=== PATIENT | female | born 2000 | race Caucasian/White ===

== ENCOUNTER 2018-03-17 11:14 | Emergency (ER) | payer SELFPAY ==
--- NOTE | 2018-03-17 11:47 | ED.PDOC ---
History of Present Illness - General Chief Complaint: Problem Stated Complaint: pain with urination Time Seen by Provider: 03/17/18 11:44 Source: patient - History of Present Illness Timing/Duration: week Quality: moderate, burning Onset Location: suprapubic Radiation: none Activites at Onset: none Sexual intercourse history: less than 2 months ago, single partner Improving Factors: nothing Worsening Factors: nothing Associated Symptoms: dysuria, polyuria Allergies/Adverse Reactions: Allergies NO KNOWN ALLERGY Allergy (Verified 03/17/18 11:36) Home Medications: Ambulatory Orders Amoxicillin 875 mg PO BID #14 tab 03/17/18 Review of Systems - Review of Systems Constitutional: Denies: chills, fever EENTM: States: no symptoms reported Gastrointestinal/Abdominal: Denies: abdominal pain, nausea, vomiting Genitourinary: States: dysuria, frequency, other - last menstrual period in January. Denies: discharge Skin: States: no symptoms reported Endocrine: States: no symptoms reported Hematologic/Lymphatic: States: no symptoms reported Past Medical History (General) - Patient Medical History Hx Thyroid Disease: Yes - does not take meds Family Medical History - Family History Mother Living Status: Age at (years of age): 47 Cause of : Lung CA Physical Exam - Physical Exam General Appearance: Alert, No apparent distress Gastrointestinal/Abdominal: normal bowel sounds, non tender, soft, abnormal bowel sounds Back Exam: normal inspection, no vertebral tenderness Extremity: normal range of motion, non-tender Skin Exam: normal color, warm/dry Departure - Departure Clinical Impression: Dysuria during Qualifiers: Trimester: first trimester Qualified Code(s): O26.891 - Other specified related conditions, first trimester; R30.0 - Dysuria Qualifiers: Weeks of gestation: less than 8 weeks Qualified Code(s): Z3A.01 - Less than 8 weeks gestation of Disposition: Discharge to Home or Self Care Departure Forms: ED Discharge - Pt. Copy, Patient Portal Self Enrollment Prescriptions: Amoxicillin 875 mg PO BID #14 tab Home Medications: Ambulatory Orders Amoxicillin 875 mg PO BID #14 tab 03/17/18
[2018-03-17 11:55] VITALS: BP 113/80; TEMP 98.7; O2SAT 97
== END 2018-03-17 13:12 | disposition home or self-care (01) ==
LOC: ER 11:14
DX: O26.891 Other specified pregnancy related conditions, first trimester (principal); R30.0 Dysuria; O99.281 Endocrine, nutritional and metabolic diseases complicating pregnancy, first trimester; E07.9 Disorder of thyroid, unspecified; Z3A.01 Less than 8 weeks gestation of pregnancy

== ENCOUNTER 2018-03-27 23:35 | Emergency (ER) | payer MEDICAID ==
--- NOTE | 2018-03-27 23:50 | ED.PDOC ---
History of Present Illness - General Stated Complaint: VAGINAL BLEEDING Time Seen by Provider: 03/27/18 23:42 Source: patient Exam Limitations: no limitations Additional Information: C/O SPOTTING ONSET TODAY. MILD CRAMPING, RECENTLY DIAGNOSED NO OB F/U YET. [id number], [id number]. - History of Present Illness Severity: mild Improving Factors: nothing Worsening Factors: nothing Associated Symptoms: other - CRAMPING Allergies/Adverse Reactions: Allergies NO KNOWN ALLERGY Allergy (Verified 03/27/18 23:50) Home Medications: Ambulatory Orders Amoxicillin 875 mg PO BID #14 tab 03/17/18 Review of Systems - Review of Systems Constitutional: Denies: chills, fever EENTM: States: no symptoms reported Respiratory: States: no symptoms reported Cardiology: States: no symptoms reported Gastrointestinal/Abdominal: States: abdominal pain. Denies: nausea, vomiting Genitourinary: Denies: dysuria, hematuria Musculoskeletal: States: no symptoms reported Skin: States: no symptoms reported Neurological: States: no symptoms reported Endocrine: States: no symptoms reported Hematologic/Lymphatic: States: no symptoms reported Past Medical History (General) - Patient Medical History Hx Stroke: No Hx Congestive Heart Failure: No Hx Thyroid Disease: Yes - does not take meds Hx Diabetes: No Hx MRSA: No - Vaccination History Hx Influenza Vaccination: No Hx Pneumococcal Vaccination: No - Social History Hx Tobacco Use: Yes - Female History Patient : No Family Medical History - Family History Mother Living Status: Age at (years of age): 47 Cause of : Lung CA Physical Exam - Physical Exam General Appearance: No apparent distress, Obese Eye Exam: bilateral normal Ears, Nose, Throat: hearing grossly normal, normal ENT inspection Neck: non-tender, supple, normal inspection Respiratory: lungs clear, normal breath sounds Cardiovascular/Chest: regular rate, rhythm, no murmur Gastrointestinal/Abdominal: non tender, soft, no organomegaly, other - : NL FEMALE, NO BLEEDING, CX NL, CLOSED, BIMANUAL NO MIDLINE/ADNEXAL MASSES TTP. Back Exam: normal inspection, no CVA tenderness, no vertebral tenderness Extremity: normal range of motion, non-tender Neurologic: alert, normal mood/affect Skin Exam: normal color, warm/dry Lymphatic: no adenopathy Progress - EKG/XRAY/CT Xray Comments: US: IUP + FHT Departure - Departure Clinical Impression: Threatened Time of Disposition: 02:54 Disposition: Discharge to Home or Self Care Condition: Good Instructions: DI for Threatened Home Medications: Ambulatory Orders Amoxicillin 875 mg PO BID #14 tab 03/17/18
[2018-03-27 23:51] VITALS: BP 125/76; TEMP 99.2; O2SAT 99
--- NOTE | 2018-03-28 02:43 | US ---
Ultrasound OB early less than 14 weeks on 03/28/2018 CLINICAL INDICATION: , vaginal spotting COMPARISON: None FINDINGS: Multiple sonographic images are obtained throughout the pelvis by transvaginal approach, both transverse and sagittal images are obtained. Uterus measures approximately 10.1 x 6.4 x 6.4 cm. Left ovary measures approximately 2.2 x 2.3 x 1.8 cm. Right ovary measures approximately 2.4 x 2.0 x 2.8 cm. No adnexal mass or fluid collection is noted. There is a single early intrauterine with gestational sac, yolk sac and pole. Estimated gestational age by crown-rump length measurement is an approximate eight week three day gestation. Gestational sac shape appears unremarkable. Positive cardiac activity is noted with a heart rate of 176 bpm. Gestation is too early for placental evaluation. IMPRESSION: Single living approximate eight week three day intrauterine . Electronically signed by: Christofer Brady 03/28/2018 2:42 AM CDT
== END 2018-03-28 03:04 | disposition home or self-care (01) ==
LOC: ER 23:35
DX: O20.0 Threatened abortion (principal); O99.281 Endocrine, nutritional and metabolic diseases complicating pregnancy, first trimester; E07.9 Disorder of thyroid, unspecified; Z3A.08 8 weeks gestation of pregnancy; Z87.891 Personal history of nicotine dependence

== ENCOUNTER 2018-05-02 14:24 | Emergency (ER) | payer MEDICAID, OTHER ==
[2018-05-02 14:34] VITALS: O2SAT 100
--- NOTE | 2018-05-02 15:12 | RAD ---
EXAM DESCRIPTION: Wrist,Left 3 Views CLINICAL HISTORY: pain COMPARISON: None. TECHNIQUE: AP, lateral, right wrist FINDINGS: Radiolucent fracture line across the metaphyseal region of the distal right radius. Minimal cortical buckling on the dorsal aspect. No significant angulation or displacement. Not involving the radiocarpal joint. Distal ulna is unremarkable. Tarsal bones are unremarkable. No radiodense fragments are abnormal objects. Minimal soft tissue swelling. IMPRESSION: No significant displacement or angulation of distal right radial fracture at the metaphyseal region and not involving the radiocarpal joint spaces. Electronically signed by: Mau Wilkinson MD 05/02/2018 3:11 PM CDT
--- NOTE | 2018-05-02 15:28 | ED.PDOC ---
History of Present Illness - General Chief Complaint: Upper Extremity Injury Time Seen by Provider: 05/02/18 15:18 Source: patient, family Exam Limitations: no limitations - History of Present Illness Initial Comments: PT SLAMMED A GATE SHUT. PAIN ENSUED IN LEFT WRIST. PAIN 07/19. 13 WKS . Occurred: just prior to arrival Pain - Upper Extremity: severe: Wrist, left Method of Injury: direct blow Improving Factors: immobilization Worsening Factors: movement Allergies/Adverse Reactions: Allergies NO KNOWN ALLERGY Allergy (Verified 03/27/18 23:50) Home Medications: Ambulatory Orders Amoxicillin 875 mg PO BID #14 tab 03/17/18 Review of Systems - Review of Systems Constitutional: States: no symptoms reported EENTM: States: no symptoms reported Respiratory: States: no symptoms reported Cardiology: States: no symptoms reported Gastrointestinal/Abdominal: States: no symptoms reported Genitourinary: States: no symptoms reported Musculoskeletal: States: see HPI, joint pain, joint swelling. Denies: back pain , muscle pain, neck pain Skin: States: no symptoms reported Neurological: Denies: numbness, paresthesia, tingling, weakness Endocrine: States: no symptoms reported Hematologic/Lymphatic: States: no symptoms reported All other Systems: Reviewed and Negative Past Medical History (General) - Patient Medical History Hx Seizures: No Hx Stroke: No Hx Dementia: No Hx Asthma: No Hx of COPD: No Hx Cardiac Disorders: No Hx Congestive Heart Failure: No Hx Pacemaker: No Hx Hypertension: No Hx Thyroid Disease: Yes Hx Diabetes: No Hx Gastroesophageal Reflux: No Hx Renal Disease: No Hx Cancer: No Hx of HIV: No Hx Hepatitis C: No Hx MRSA: No - Vaccination History Hx Tetanus, Diphtheria Vaccination: No Hx Influenza Vaccination: No Hx Pneumococcal Vaccination: No Immunizations Up to Date: No - Social History Hx Tobacco Use: Yes Hx Chewing Tobacco Use: No Hx Alcohol Use: No Hx Substance Use: No Hx Substance Use Treatment: No Hx Depression: No Feels Threatened In Home Enviroment: No Feels Threatened In a Relationship: No Hx Physical Abuse: No Hx Emotional Abuse: No Hx Suspected Abuse: No - Female History Patient is a Female of Child Bearing Age (10 -59 yrs old): Yes Hx Last Menstrual Period: 01/27/18 Patient : Yes Family Medical History - Family History Mother Living Status: Age at (years of age): 47 Cause of : Lung CA Physical Exam - Physical Exam General Appearance: Alert, Obvious distress Eyes, Ears, Nose, Throat Exam: PERRL/EOMI, normal ENT inspection Neck: non-tender, full range of motion Cardiovascular/Respiratory: regular rate, rhythm, no M/R/G Abdominal Exam: non-tender, no organomegaly Back Exam: normal inspection Shoulder Exam: normal inspection, non-tender, no evidence of injury, normal ROM Elbow/Forearm Exam: non-tender, no evidence of injury, normal ROM Wrist Exam: bone tenderness, limited ROM, pain, soft tissue tenderness, swelling Hand Exam: normal inspection, non-tender, no evidence of injury, normal ROM Neuro/Tendon: normal sensation, normal motor functions, normal tendon functions , responds to pain, no evidence tendon injury Mental Status: alert, oriented x 3 Skin Exam: normal color, warm/dry, other - MILD EDEMA Progress - Progress Progress: 05/02/18 16:32 L DISTAL RADIAL FRX AT METAPHYSIS. (NOTE, RADIOLOGY READ STATES RIGHT, BUT IT IS INDEED LEFT.) DR. VITAL, ORTHO, CONSULTED. SUGAR TONG SPLINT APPLIED. PT INSTRUCTED TO CALL ORTHO TOMORROW AM TO SCHEDULE APPT. Departure - Departure Clinical Impression: Left wrist pain Distal radial fracture Qualifiers: Encounter type: initial encounter Fracture type: closed Fracture morphology: other intra-articular Laterality: left Qualified Code(s): S52.572A - Other intraarticular fracture of lower end of left radius, initial encounter for closed fracture Qualifiers: Weeks of gestation: 13 weeks Qualified Code(s): Z3A.13 - 13 weeks gestation of Disposition: Discharge to Home or Self Care Condition: Good Departure Forms: ED Discharge - Pt. Copy, Patient Portal Self Enrollment Instructions: DI for Forearm Fracture Diet: resume usual diet Activity: no lifting Referrals: Haroldo Orozco MD [Primary Care Provider] - 1-2 Weeks Dennis Vital MD [Active Staff] - 1-5 Days Home Medications: Ambulatory Orders Amoxicillin 875 mg PO BID #14 tab 03/17/18 Additional Instructions: Tylenol 1000 mg is safe with . Please call Dr. Vital's office, orthopedic surgery, in the morning to schedule an appointment for this week.
[2018-05-02] MEDS ORDERED: ACETAMINOPHEN 500 MG TAB PO ONE (15:46)
[2018-05-02 16:27] VITALS: BP 137/79; TEMP 98
== END 2018-05-02 16:35 | disposition home or self-care (01) ==
LOC: ER 14:24
DX: O9A.211 Injury, poisoning and certain other consequences of external causes complicating pregnancy, first trimester (principal); S52.572A Other intraarticular fracture of lower end of left radius, initial encounter for closed fracture; Z3A.13 13 weeks gestation of pregnancy; W23.0XXA Caught, crushed, jammed, or pinched between moving objects, initial encounter; Y92.9 Unspecified place or not applicable

== ENCOUNTER → 2018-05-18 | Outpatient (CLI) | payer OTHER ==
--- NOTE | 2018-05-19 10:15 | RAD ---
EXAM DESCRIPTION: Wrist,Left 3 Views CLINICAL HISTORY: 17 years Female, PAIN COMPARISON: None available. FINDINGS: The visualized bones are well-mineralized. Persistent visualization of the fracture of the distal radial metaphysis. Overlying orthopedic cast is noted. Mild diffuse soft tissue swelling is noted. IMPRESSION: Persistent visualization of the fracture of the distal radial metaphysis with associated soft tissue swelling. Electronically signed by: Briana Wheeler MD 05/19/2018 10:14 AM CDT
== END ==
LOC: RAD 08:00
PROVIDERS: ATTEND Orthopaedic Surgery
DX: S52.502A Unspecified fracture of the lower end of left radius, initial encounter for closed fracture (principal)

== ENCOUNTER 2018-09-18 11:27 | Emergency (ER) | payer OTHER ==
[2018-09-18 11:38] VITALS: TEMP 98.7
--- NOTE | 2018-09-18 11:54 | ED.PDOC ---
History of Present Illness - General Chief Complaint: Abdominal Pain Stated Complaint: RUQ pain Time Seen by Provider: 09/18/18 11:43 Information Source: patient Exam Limitations: no limitations - History of Present Illness Initial Comments: Rebekah Garcias 18 y/o female came to ER with sharp intermittent RUQ pain 3 days ago.She stated it occurred after coming from her regular visit.No nausea/vomiting no dysuria,no constipation denies post or pre prandial pain..Presently 33 w EGA LMP 02 February 2108;EDC-21 Oct 2017;Denies vaginal bleeding or uterine contractions. Abdominal Pain Onset Location: RUQ Pain Radiation: no radiation Quality: moderate, intermittent, sharpness Timing/Duration: other - see hpi Improving Factors: nothing Worsening Factors: nothing Associated Symptoms: other - see hpi Review of Systems - Review of Systems Gastrointestinal/Abdominal: States: see HPI All other Systems: Reviewed and Negative, No Change from Baseline Past Medical History (General) - Patient Medical History Hx Seizures: No Hx Stroke: No Hx Dementia: No Hx Asthma: No Hx of COPD: No Hx Cardiac Disorders: No Hx Congestive Heart Failure: No Hx Pacemaker: No Hx Hypertension: No Hx Thyroid Disease: Yes Hx Diabetes: No Hx Gastroesophageal Reflux: No Hx Renal Disease: No Hx Cancer: No Hx of HIV: No Hx Hepatitis C: No Hx MRSA: No Surgical History: tonsillectomy - Vaccination History Hx Tetanus, Diphtheria Vaccination: No Hx Influenza Vaccination: No Hx Pneumococcal Vaccination: No - Social History Hx Tobacco Use: Yes Hx Chewing Tobacco Use: No Hx Alcohol Use: No Hx Substance Use: No Hx Substance Use Treatment: No Hx Depression: No Hx Physical Abuse: No Hx Emotional Abuse: No Hx Suspected Abuse: No - Female History Hx Last Menstrual Period: 01/27/18 Patient : Yes Expected Date of Delivery:: 11/05/18 Hx Gestational Age: 33 Family Medical History - Family History Mother Living Status: Age at (years of age): 47 Cause of : Lung CA Physical Exam - Physical Exam General Appearance: Alert, Comfortable, No apparent distress Eyes, Ears, Nose, Throat Exam: normal ENT inspection Neck: non-tender, full range of motion, supple, normal inspection Respiratory: chest non-tender, lungs clear, normal breath sounds Cardiovascular/Chest: normal peripheral pulses, regular rate, rhythm, no murmur Peripheral Pulses: No deficit Gastrointestinal/Abdominal: normal bowel sounds, non tender, soft, other - gravid uterus FH-34 cms;FHT-163 Extremity: no calf tenderness, pedal edema - =1 Neurologic: alert, oriented x 3 Skin Exam: normal color, warm/dry Progress - Progress Progress: 09/18/18 13:33 09/18/18 11:57 IV Care:Saline Lock per Protoc QSHIFT Laboratory Results - last 24 hr 09/18/18 11:32 Urine Color Yellow Urine Appearance Sl cloudy Urine pH 7.5 Ur Specific [place] 1.015 Urine Protein Negative Urine Glucose (UA) Negative Urine Ketones Negative Urine Blood Negative Urine Nitrite Negative Urine Bilirubin Negative Urine Urobilinogen 0.2 Ur Leukocyte Esterase Negative Urine RBC 0 Urine WBC 1-3 Ur Epithelial Cells 10-20 Urine Bacteria Rare - EKG/XRAY/CT Xray Comments: OB-Sono-33 weeks ega single IUP no placental abnormalities Departure - Departure Clinical Impression: with 33 completed weeks gestation Abdominal pain Qualifiers: Abdominal location: right upper quadrant Qualified Code(s): R10.11 - Right upper quadrant pain Time of Disposition: 13:35 Disposition: Discharge to Home or Self Care Condition: Fair Departure Forms: ED Discharge - Pt. Copy, Patient Portal Self Enrollment Diet: low fat, low cholesterol, other - Avoid GREASY/SPICY FOODS Referrals: Haroldo Orozco MD [Primary Care Provider] - 1-2 Weeks Home Medications: Ambulatory Orders Cyclobenzaprine HCl 10 mg PO Q8H PRN 09/18/18 Levothyroxine Sodium 25 mcg PO DAILY 09/18/18 Vit W/ Ferrous Fumara [] 1 tab PO DAILY 09/18/18 Additional Instructions: Follow up with primary -OB Dr. Orozco 19 Sep 2018 return to ER as needed
[2018-09-18] MEDS: LACTATED RINGERS 1,000 ML IVS ONE (12:32)
--- NOTE | 2018-09-18 13:18 | US ---
EXAM DESCRIPTION: OB ,Late (15-40wks): Ultrasound. CLINICAL HISTORY: 18 years Female Gestational size and dates correlation. Pain right upper quadrant. unknown. By LMP 01/27/2018 , EGA today is 33 weeks, 3 days, with ATTILA of 11/03/2018. COMPARISON: First trimester OB ultrasound 03/28/2018. EGA today is 33 weeks, 2 days. ATTILA is 11/04/2018.. TECHNIQUE: Trans-pelvic scanning through the urine-filled bladder; trejo-scale, color Doppler, and M-mode sonography FINDINGS: Single, intrauterine gestation, cephalic position. Amniotic fluid volume normal. SANDEEP : 12.9 cm. Maternal cervix well seen. Placenta anterior fundal with no evidence of previa or abruptio. heart rate by M-mode sonography 160 beats/min. limb activity observed. structural survey: Situs solitus. The following structures were visualized and grossly normal - urinary bladder, stomach, and bilateral kidneys; cord insertion, 3-vessel cord and 4 extremities; spine, 4-chamber heart and right and left ventricular outflow tracts; diaphragm, bilateral choroid plexus, lateral ventricles, cerebellum, and cisterna magna. Nose/lips seen profile and en face. Ultrasound parameter measurements for estimating gestational age: BPD 82.2 mm 33/0 (weeks/days). Head circumference 298.2 mm 33/0. Abdominal circumference 291.6 mm 33/1. Femur length 4.8 mm 33/3. FL/HC ratio is elevated. Remaining ultrasound parameter ratios and cephalic index are within the normal range. Mean estimated gestational age is 33 weeks 1 days, corresponding to ATTILA of 11/05/2018. Estimated weight based on these measurements is 2143+/- 321 g. 4 pound, 12 ounces. 34th percentile by medical history. Bilateral adnexa not well seen; ovaries not seen IMPRESSION: 1. Single, living, intrauterine gestation in cephalic presentation. Amniotic fluid volume normal, and maternal cervix not well seen. Placenta fundal anterior with no evidence of previa. Structural survey limited due to age. 2. Estimated gestational age by today's ultrasound examination is 33 weeks 1 days with ATTILA 11/05/2018. This is 2 days younger than the estimated gestation age by menstrual dates. One day younger than EGA by first trimester ultrasound. 3. Estimated weight is 2143 g. 4 pounds, 12 ounces. 34th Percentile by LMP. Electronically signed by: Mau Wilkinson MD 09/18/2018 1:16 PM [facility]
[2018-09-18 13:45] VITALS: BP 116/81; O2SAT 99
== END 2018-09-18 13:45 | disposition home or self-care (01) ==
LOC: ER 11:27
DX: O99.89 Other specified diseases and conditions complicating pregnancy, childbirth and the puerperium (principal); R10.11 Right upper quadrant pain; O99.283 Endocrine, nutritional and metabolic diseases complicating pregnancy, third trimester; E07.9 Disorder of thyroid, unspecified; Z3A.33 33 weeks gestation of pregnancy; Z87.891 Personal history of nicotine dependence
CPT/HCPCS: 76805; 81001; J7120

== ENCOUNTER 2019-08-02 07:58 | Emergency (ER) | payer OTHER ==
[2019-08-02 08:19] VITALS: BP 148/90; TEMP 97.4; O2SAT 99
[2019-08-02] MEDS ORDERED: IBUPROFEN 200 MG TAB PO ONE (08:19)
--- NOTE | 2019-08-02 08:22 | ED.PDOC ---
History of Present Illness - General Chief Complaint: Upper Extremity Injury Stated Complaint: right hand and wrist pain Time Seen by Provider: 08/02/19 08:19 - History of Present Illness Initial Comments: 19 yo female who presents with cc of right hand pain. Onset 1-2 days ago with gradual worsening. Woke up this morning to go to work and reported new onset moderate swelling to the top of the hand as well. Denies any acute trauma/injuries but states she frequently catches a heavy door at work with the right hand and unsure if this could've injured it. Reports constant "cramping" 4/10 pain to entire top of right hand, some radiation to lateral wrist, worse with palpation and with grabbing/lifting items with the hand, no meds tried for relief. Denies any weakness/numbness, redness, warmth, or deformity. No hx of similar sx's. Allergies/Adverse Reactions: Allergies NO KNOWN ALLERGY Allergy (Verified 03/27/18 23:50) Home Medications: Ambulatory Orders Levothyroxine Sodium 25 mcg PO DAILY 09/18/18 Buspirone HCl 10 mg PO BID 08/02/19 OXcarbazepine [Trileptal] 300 mg PO DAILY 08/02/19 OXcarbazepine [Trileptal] 600 mg PO BEDTIME 08/02/19 Review of Systems - Review of Systems Review of Systems: 08/02/19 08:22 as per HPI, all other systems negative All other Systems: Reviewed and Negative Past Medical History (General) - Patient Medical History Hx Seizures: No Hx Stroke: No Hx Dementia: No Hx Asthma: No Hx of COPD: No Hx Cardiac Disorders: No Hx Congestive Heart Failure: No Hx Pacemaker: No Hx Hypertension: No Hx Thyroid Disease: Yes Hx Diabetes: No Hx Gastroesophageal Reflux: No Hx Renal Disease: No Hx Cancer: No Hx of HIV: No Hx Hepatitis C: No Hx MRSA: No Surgical History: tonsillectomy - Vaccination History Hx Tetanus, Diphtheria Vaccination: No Hx Influenza Vaccination: Yes Hx Pneumococcal Vaccination: No - Social History Hx Tobacco Use: Yes Hx Chewing Tobacco Use: No Hx Alcohol Use: No Hx Substance Use: No Hx Substance Use Treatment: No Hx Depression: No Hx Physical Abuse: No Hx Emotional Abuse: No Hx Suspected Abuse: No - Female History Patient is a Female of Child Bearing Age (10 -59 yrs old): Yes Hx Last Menstrual Period: 01/27/18 Patient : No Expected Date of Delivery:: 11/05/18 Hx Gestational Age: 33 Family Medical History - Family History Mother Living Status: Age at (years of age): 47 Cause of : Lung CA Physical Exam - Physical Exam General Appearance: Alert, Comfortable, No apparent distress Eyes, Ears, Nose, Throat Exam: PERRL/EOMI, normal ENT inspection Neck: non-tender, full range of motion, supple, normal inspection Cardiovascular/Respiratory: regular rate, rhythm, no M/R/G, normal breath sounds, no respiratory distress Abdominal Exam: non-tender, no organomegaly Back Exam: normal inspection Shoulder Exam: normal inspection, no evidence of injury Elbow/Forearm Exam: normal inspection, non-tender, no evidence of injury, normal ROM Wrist Exam: normal inspection, non-tender, no evidence of injury, normal ROM Hand Exam: normal ROM, soft tissue tenderness - moderate to entire dorsal R hand, swelling - moderate to dorsal right hand Neuro/Tendon: normal sensation, normal motor functions Mental Status: alert, oriented x 3 Skin Exam: normal color, warm/dry Progress - Progress Progress: 08/02/19 08:24 Right hand pain -suspect strain/sprain most likely vs fracture vs contusion vs arthritis vs other -obtain XR R hand -cold pack and ibuprofen 800 mg for pain 08/02/19 08:41 -XR images show no acute fractures. Suspect strain/sprain of hand. Will advise RICE and gradual return to activity. F/u with PCP 1-2 weeks or sooner PRN. Alek Hinson MD Billing #[id number] - EKG/XRAY/CT XRAY: hand - Right Xray Comments: no acute fractures Departure - Departure Clinical Impression: Sprain of right hand Qualifiers: Encounter type: initial encounter Qualified Code(s): S63.91XA - Sprain of unspecified part of right wrist and hand, initial encounter Time of Disposition: 08:44 Disposition: Discharge to Home or Self Care Condition: Good Departure Forms: ED Discharge - Pt. Copy, Patient Portal Self Enrollment Instructions: DI for Hand Pain Activity: increase activity as tolerated Referrals: Haroldo Orozco MD [Primary Care Provider] - 1-2 Weeks Home Medications: Ambulatory Orders Levothyroxine Sodium 25 mcg PO DAILY 09/18/18 Buspirone HCl 10 mg PO BID 08/02/19 OXcarbazepine [Trileptal] 300 mg PO DAILY 08/02/19 OXcarbazepine [Trileptal] 600 mg PO BEDTIME 08/02/19
--- NOTE | 2019-08-02 08:36 | RAD ---
EXAM DESCRIPTION: Hand,Right 3 Views CLINICAL HISTORY: 19 years Female, acute right hand pain and swelling COMPARISON: None. Findings: Location: Right hand No acute fracture or dislocation. Joint spaces are maintained. Soft tissues are unremarkable. IMPRESSION: No evidence of acute process in the right hand. Electronically signed by: Yonny Vega MD 08/02/2019 8:34 AM CDT
== END 2019-08-02 09:09 | disposition home or self-care (01) ==
LOC: ER 07:58
DX: S63.91XA Sprain of unspecified part of right wrist and hand, initial encounter (principal); E07.9 Disorder of thyroid, unspecified; Z87.891 Personal history of nicotine dependence; Z79.899 Other long term (current) drug therapy; X58.XXXA Exposure to other specified factors, initial encounter; Y92.9 Unspecified place or not applicable

== ENCOUNTER 2019-11-13 09:35 | Emergency (ER) | payer SELFPAY ==
[2019-11-13] MEDS ORDERED: SODIUM CHLORIDE 0.9% 1000ML 1,000 ML IVS ONE (09:45)
[2019-11-13] MEDS ORDERED: ONDANSETRON ODT 8 MG TAB SL ONE (09:45)
[2019-11-13 09:55] VITALS: TEMP 97.1
--- NOTE | 2019-11-13 11:03 | RAD ---
Procedure: XR ABDOMEN SUPINE AND ERECT WITH CHEST (ABD ACUTE SERIES) Exam Date: 11/13/2019 Ordering Provider: Berhane Velarde Clinical Indication: nv abd pain Comparison: None Findings: Upright chest x-ray: Cardiomediastinal silhouette is unremarkable. Pulmonary vasculature is unremarkable. There is no consolidation or effusion. No pneumothorax. Flat and upright abdomen: Nonobstructive bowel gas pattern. There is no pneumoperitoneum. There are no suspicious calcifications. No acute osseous abnormalities. Impression: 1. No acute findings. Electronically signed by: Remy Phillips MD 11/13/2019 11:[address] [facility]
--- NOTE | 2019-11-13 11:03 | ED.PDOC ---
History of Present Illness - General Chief Complaint: GI Problem Stated Complaint: nausea,vomiting Time Seen by Provider: 11/13/19 09:44 Source: patient Exam Limitations: no limitations - History of Present Illness Initial Comments: The patient is a 19-year-old female presenting to the emergency room secondary to about 12 hours of nausea vomiting and diarrhea. No blood and no bile. No fevers. She has been around people with the flu. No real runny nose or cough. No sore throat. No shortness of breath. No altered mental status. No palpitations. She has been off of her Synthroid. Timing/Duration: other - 12 hours Severity: moderate Improving Factors: nothing Worsening Factors: eating Associated Symptoms: loss of appetite, malaise, nausea/vomiting Allergies/Adverse Reactions: Allergies NO KNOWN ALLERGY Allergy (Verified 03/27/18 23:50) Home Medications: Ambulatory Orders Famotidine [Pepcid Tab] 20 mg PO BID #60 tab 11/13/19 Levothyroxine Sodium 50 mcg PO DAILY #30 tab 11/13/19 Ondansetron Odt [Zofran ODT] 4 mg PO Q8HR PRN #5 tab 11/13/19 Review of Systems - Review of Systems Constitutional: States: malaise EENTM: States: no symptoms reported Respiratory: States: no symptoms reported Cardiology: States: no symptoms reported Gastrointestinal/Abdominal: States: abdominal pain, diarrhea, nausea, vomiting Musculoskeletal: States: no symptoms reported Skin: States: no symptoms reported Neurological: States: no symptoms reported Endocrine: States: no symptoms reported All other Systems: No Change from Baseline Past Medical History (General) - Patient Medical History Hx Seizures: No Hx Stroke: No Hx Dementia: No Hx Asthma: No Hx of COPD: No Hx Cardiac Disorders: No Hx Congestive Heart Failure: No Hx Pacemaker: No Hx Hypertension: No Hx Thyroid Disease: Yes Hx Diabetes: No Hx Gastroesophageal Reflux: No Hx Renal Disease: No Hx Cancer: No Hx of HIV: No Hx Hepatitis C: No Hx MRSA: No Surgical History: tonsillectomy - Vaccination History Hx Tetanus, Diphtheria Vaccination: No Hx Influenza Vaccination: Yes Hx Pneumococcal Vaccination: No Immunizations Up to Date: Yes - Social History Hx Tobacco Use: Yes Cigarettes Packs Per Day: 1 Hx Chewing Tobacco Use: No Hx Alcohol Use: No Hx Substance Use: No Hx Substance Use Treatment: No Hx Depression: No Hx Physical Abuse: No Hx Emotional Abuse: No Hx Suspected Abuse: No - Female History Patient is a Female of Child Bearing Age (10 -59 yrs old): Yes Hx Last Menstrual Period: 11/11/19 Patient : No Expected Date of Delivery:: 11/05/18 Hx Gestational Age: 33 - Triage Comment ED Triage Comment: no menstral cycle since having baby about 1yr ago, started spotting tuesday night. Family Medical History - Family History Mother Living Status: Age at (years of age): 47 Cause of : Lung CA Physical Exam - Physical Exam General Appearance: Alert, Comfortable, No apparent distress Eye Exam: bilateral normal Ears, Nose, Throat: hearing grossly normal, normal pharynx Neck: full range of motion, supple Respiratory: lungs clear, normal breath sounds, no respiratory distress, no accessory muscle use Cardiovascular/Chest: normal peripheral pulses, regular rate, rhythm, no edema Peripheral Pulses: radial,right: 2+, radial,left: 2+ Gastrointestinal/Abdominal: non tender, soft Rectal Exam: deferred Back Exam: no CVA tenderness, no vertebral tenderness Extremity: normal range of motion, non-tender, normal inspection, no pedal edema, normal capillary refill 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 She has responded positively to IV fluids and Zofran. She does need to maintain a bland diet with small frequent meals and copious liquids. She will be written for Zofran to c ontrol any further nausea and vomiting. 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 ER warnings are given. Keep routine follow-up with primary care doctor. The patient also does have some hypothyroidism. She is going to be written for a months worth of 50 mcg Synthroid to take daily. anna burt [id number] - Results/Orders Results/Orders: Upon my review of the acute abdominal series I do not see any evidence of any free air, obstruction, obvious ileus or obvious pulmonary infiltrates or cardiomegaly. Official read is still pending secondary to technological difficulties related to power outages. Laboratory Tests 11/13/19 11/13/19 11/13/19 09:55 09:55 10:00 WBC 12.2 H RBC 4.97 Hgb 15.3 Hct 45.2 MCV 91.0 MCH 30.9 MCHC 33.9 RDW 13.5 Plt Count 306 MPV 8.8 Absolute Neuts (auto) 9.90 H Absolute Lymphs (auto) 1.60 Absolute Monos (auto) 0.50 Absolute Eos (auto) 0.20 Absolute Basos (auto) 0.10 Neutrophils % 80.8 H Lymphocytes % 13.1 L Monocytes % 4.3 Eosinophils % 1.4 Basophils % 0.4 Sodium 141 Potassium 4.2 Chloride 108 Carbon Dioxide 26 Anion Gap 11.2 L BUN 12 Creatinine 0.82 BUN/Creatinine Ratio 14.6 Random Glucose 108 H Serum Osmolality 281.5 Calcium 9.3 Magnesium 1.7 L Total Bilirubin 0.7 AST 21 ALT 28 Alkaline Phosphatase 63 Serum Total Protein 7.3 Albumin 4.6 Globulin 2.7 Albumin/Globulin Ratio 1.7 Amylase 24 L Lipase 31 TSH 18.13 H Urine Color Urine Appearance Urine pH Ur Specific [place] Urine Protein Urine Glucose (UA) Urine Ketones Urine Blood Urine Nitrite Urine Bilirubin Urine Urobilinogen Ur Leukocyte Esterase Urine RBC Urine WBC Ur Epithelial Cells Amorphous Sediment Urine Bacteria Urine HCG, Qual Negative 11/13/19 10:00 WBC RBC Hgb Hct MCV MCH MCHC RDW Plt Count MPV Absolute Neuts (auto) Absolute Lymphs (auto) Absolute Monos (auto) Absolute Eos (auto) Absolute Basos (auto) Neutrophils % Lymphocytes % Monocytes % Eosinophils % Basophils % Sodium Potassium Chloride Carbon Dioxide Anion Gap BUN Creatinine BUN/Creatinine Ratio Random Glucose Serum Osmolality Calcium Magnesium Total Bilirubin AST ALT Alkaline Phosphatase Serum Total Protein Albumin Globulin Albumin/Globulin Ratio Amylase Lipase TSH Urine Color Yellow Urine Appearance Clear Urine pH 6.5 Ur Specific [place] 1.020 Urine Protein Negative Urine Glucose (UA) Negative Urine Ketones Negative Urine Blood Negative Urine Nitrite Negative Urine Bilirubin Negative Urine Urobilinogen 0.2 Ur Leukocyte Esterase Negative Urine RBC 0-1 Urine WBC 0-1 Ur Epithelial Cells 3-5 Amorphous Sediment 1+ Urine Bacteria 1+ Urine HCG, Qual Departure - Departure Clinical Impression: Gastroenteritis, Dehydration Hypothyroidism Qualifiers: Hypothyroidism type: unspecified Qualified Code(s): E03.9 - Hypothyroidism, unspecified Disposition: Discharge to Home or Self Care Condition: Fair Departure Forms: ED Discharge - Pt. Copy, Patient Portal Self Enrollment Instructions: DI for Diarrhea and Traveler's Diarrhea -- Adult Diet: bland diet Activity: increase activity as tolerated Referrals: Haroldo Orozco MD [Primary Care Provider] - 1-2 Weeks Prescriptions: Ondansetron Odt [Zofran ODT] 4 mg PO Q8HR PRN #5 tab PRN Reason: Nausea--Moderate Famotidine [Pepcid Tab] 20 mg PO BID #60 tab Levothyroxine Sodium 50 mcg PO DAILY #30 tab Home Medications: Ambulatory Orders Famotidine [Pepcid Tab] 20 mg PO BID #60 tab 11/13/19 Levothyroxine Sodium 50 mcg PO DAILY #30 tab 11/13/19 Ondansetron Odt [Zofran ODT] 4 mg PO Q8HR PRN #5 tab 11/13/19 Additional Instructions: The patient is a 19-year-old female presented emergency room with what is most likely mild dehydration from a viral gastroenteritis. She has responded positively to IV fluids and Zofran. She does need to maintain a bland diet with small frequent meals and copious liquids. She will be written for Zofran to control any further nausea and vomiting. 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 ER warnings are given. Keep routine follow-up with primary care doctor. The patient also does have some hypothyroidism. She is going to be written for a months worth of 50 mcg Synthroid to take daily.
[2019-11-13 11:18] VITALS: BP 135/65; O2SAT 100
== END 2019-11-13 11:18 | disposition home or self-care (01) ==
LOC: ER 09:35
DX: K52.9 Noninfective gastroenteritis and colitis, unspecified (principal); E86.0 Dehydration; E03.9 Hypothyroidism, unspecified; Z87.891 Personal history of nicotine dependence
CPT/HCPCS: 36415; 74019; 80053; 81001; 81025; 82150; 83690; 83735; 84443; 85025; 87502; J7030

== ENCOUNTER 2020-05-02 08:30 | Emergency (ER) | payer OTHER ==
--- NOTE | 2020-05-02 08:46 | ED.PDOC ---
History of Present Illness - General Chief Complaint: Upper Extremity Injury Stated Complaint: R wrist pain Time Seen by Provider: 05/02/20 08:43 Source: patient, RN notes reviewed, Vital Signs reviewed Exam Limitations: no limitations - History of Present Illness Initial Comments: This is a 19-year-old female presenting to the emergency department with right wrist pain onset last night after she got angry and "slapped a wall." She denies any numbness/tingling. Pain worsens with movement. She is right-hand dominant. No other injuries. Allergies/Adverse Reactions: Allergies NO KNOWN ALLERGY Allergy (Verified 05/02/20 08:50) Home Medications: Ambulatory Orders Ibuprofen [Motrin] 600 mg PO Q6HR #30 tab 05/02/20 Review of Systems - Review of Systems Musculoskeletal: States: joint pain. Denies: muscle pain Skin: Denies: lesions, rash Neurological: Denies: numbness, tingling, weakness Past Medical History (General) - Patient Medical History Hx Seizures: No Hx Stroke: No Hx Dementia: No Hx Asthma: No Hx of COPD: No Hx Cardiac Disorders: No Hx Congestive Heart Failure: No Hx Pacemaker: No Hx Hypertension: No Hx Thyroid Disease: Yes Hx Diabetes: No Hx Gastroesophageal Reflux: No Hx Renal Disease: No Hx Cancer: No Hx of HIV: No Hx Hepatitis C: No Hx MRSA: No - Vaccination History Hx Tetanus, Diphtheria Vaccination: No Hx Influenza Vaccination: Yes Hx Pneumococcal Vaccination: No - Social History Hx Tobacco Use: Yes Hx Chewing Tobacco Use: No Hx Alcohol Use: No Hx Substance Use: No Hx Substance Use Treatment: No Hx Depression: No Hx Physical Abuse: No Hx Emotional Abuse: No Hx Suspected Abuse: No - Female History Hx Last Menstrual Period: 11/11/19 Patient : No Expected Date of Delivery:: 11/05/18 Hx Gestational Age: 33 Family Medical History - Family History Mother Living Status: Age at (years of age): 47 Cause of : Lung CA Physical Exam - Physical Exam General Appearance: Alert, Comfortable, Obese Cardiovascular/Respiratory: regular rate, rhythm, normal peripheral pulses, no respiratory distress Shoulder Exam: normal inspection, non-tender Elbow/Forearm Exam: normal inspection, non-tender, no evidence of injury Wrist Exam: bone tenderness - Distal ulna, No radial tenderness, no snuffbox tenderness, limited ROM - Pain with flexion extension of the wrist, pain with supination, pain Hand Exam: normal inspection, non-tender, no evidence of injury, normal ROM Neuro/Tendon: normal sensation, normal motor functions, normal tendon functions Mental Status: alert, oriented x 3 Skin Exam: normal color, warm/dry Progress - Progress Progress: DDX: Fracture, dislocation, sprain MDM: Patient was discharged prior to official radiology read of the x-ray. My suspicion for scaphoid fracture is somewhat low given absence of tenderness on my initial exam, but given potential long-term complications of an undiagnosed and untreated scaphoid fracture will call the patient back to obtain scaphoid views. RN called the patient and left a message on her phone, patient did not a nswer. I have ordered a scaphoid view x-ray to be performed when she does return call and return to the emergency room. Jose Wood DO [facility] #[id number] - Results/Orders Results/Orders: Right wrist x-ray reviewed personally by me at 9:12 AM. No fracture, no dislocation. EXAM DESCRIPTION: Wrist,Right 3 Views CLINICAL HISTORY: Poss fracture COMPARISON: None IMPRESSION: 3 views of the right wrist show suspicion for fracture of the waist of the scaphoid seen on oblique view versus overlapping densities from the radial styloid process. Consider further evaluation with navicular view of the wrist. 2 mm ulnar negative variance is incidentally noted. Soft tissues are unremarkable. Electronically signed by: Rajendra Pozo MD 05/02/2020 9:16 AM CDT Departure - Departure Clinical Impression: Sprain of wrist, right Disposition: Discharge to Home or Self Care Condition: Good Departure Forms: ED Discharge - Pt. Copy, Patient Portal Self Enrollment, Work Release Form Instructions: DI for Arm Pain, Wrist Sprain (DC) Referrals: Haroldo Orozco MD [Primary Care Provider] - 1-2 Weeks Prescriptions: Ibuprofen [Motrin] 600 mg PO Q6HR #30 tab Home Medications: Ambulatory Orders Ibuprofen [Motrin] 600 mg PO Q6HR #30 tab 05/02/20
--- NOTE | 2020-05-02 09:18 | RAD ---
EXAM DESCRIPTION: Wrist,Right 3 Views CLINICAL HISTORY: Poss fracture COMPARISON: None IMPRESSION: 3 views of the right wrist show suspicion for fracture of the waist of the scaphoid seen on oblique view versus overlapping densities from the radial styloid process. Consider further evaluation with navicular view of the wrist. 2 mm ulnar negative variance is incidentally noted. Soft tissues are unremarkable. Electronically signed by: Rajendra Pozo MD 05/02/2020 9:16 AM CDT
[2020-05-02 10:01] VITALS: BP 116/74; TEMP 97.8; O2SAT 99
== END 2020-05-02 09:56 | disposition home or self-care (01) ==
LOC: ER 08:30
DX: S63.501A Unspecified sprain of right wrist, initial encounter (principal); E07.9 Disorder of thyroid, unspecified; Z87.891 Personal history of nicotine dependence; W22.09XA Striking against other stationary object, initial encounter; Y92.9 Unspecified place or not applicable

== ENCOUNTER 2020-06-02 08:19 | Emergency (ER) | payer OTHER ==
[2020-06-02] MEDS ORDERED: ALUMINUM & MAGNESIUM HYDROXIDE 30 ML UD PO ONE (08:40)
[2020-06-02] MEDS ORDERED: ONDANSETRON ODT 8 MG TAB SL ONE (08:40)
[2020-06-02 10:10] VITALS: BP 107/74; O2SAT 98
--- NOTE | 2020-06-02 11:05 | ED.PDOC ---
History of Present Illness - General Chief Complaint: General Stated Complaint: vomiting, congestion Time Seen by Provider: 06/02/20 08:21 Source: patient Exam Limitations: no limitations - History of Present Illness Initial Comments: The patient is a 21-year-old female presented emergency room secondary to several episodes of vomiting over the night. No abdominal pain. No fever. Mild runny nose. Mild sore throat. The patient does work in a healthcare field. No altered mental status. No shortness of breath. Lungs are clear. Timing/Duration: other - 14 hours Severity: moderate Improving Factors: nothing Worsening Factors: nothing Associated Symptoms: malaise, nausea/vomiting Allergies/Adverse Reactions: Allergies NO KNOWN ALLERGY Allergy (Verified 05/02/20 08:50) Home Medications: Ambulatory Orders Ibuprofen [Motrin] 600 mg PO Q6HR #30 tab 05/02/20 Ondansetron Odt [Zofran ODT] 4 mg PO Q8HR PRN #5 tab 06/02/20 Review of Systems - Review of Systems Constitutional: States: malaise EENTM: States: nose congestion Respiratory: States: no symptoms reported Cardiology: States: no symptoms reported Gastrointestinal/Abdominal: States: nausea, vomiting Genitourinary: States: no symptoms reported Musculoskeletal: States: no symptoms reported Skin: States: no symptoms reported Neurological: States: no symptoms reported Endocrine: States: no symptoms reported All other Systems: No Change from Baseline Past Medical History (General) - Patient Medical History Hx Seizures: No Hx Stroke: No Hx Dementia: No Hx Asthma: No Hx of COPD: No Hx Cardiac Disorders: No Hx Congestive Heart Failure: No Hx Pacemaker: No Hx Hypertension: No Hx Thyroid Disease: Yes - hypothyroidism Hx Diabetes: No Hx Gastroesophageal Reflux: No Hx Renal Disease: No Hx Cancer: No Hx of HIV: No Hx Hepatitis C: No Hx MRSA: No Surgical History: tonsillectomy - Vaccination History Hx Tetanus, Diphtheria Vaccination: No Hx Influenza Vaccination: Yes Hx Pneumococcal Vaccination: No - Social History Hx Tobacco Use: Yes Hx Chewing Tobacco Use: No Hx Alcohol Use: No Hx Substance Use: No Hx Substance Use Treatment: No Hx Depression: No Hx Physical Abuse: No Hx Emotional Abuse: No Hx Suspected Abuse: No - Female History Hx Last Menstrual Period: 11/11/19 Patient : No Expected Date of Delivery:: 11/05/18 Hx Gestational Age: 33 Family Medical History - Family History Mother Living Status: Age at (years of age): 47 Cause of : Lung CA Hx Family;Other: none Physical Exam - Physical Exam General Appearance: Alert, Comfortable, No apparent distress Eye Exam: bilateral normal Ears, Nose, Throat: hearing grossly normal, nasal congestion Neck: full range of motion Respiratory: lungs clear, normal breath sounds, no respiratory distress, no accessory muscle use Cardiovascular/Chest: normal peripheral pulses, regular rate, rhythm, no edema Peripheral Pulses: radial,right: 2+, radial,left: 2+ Gastrointestinal/Abdominal: non tender, soft Rectal Exam: deferred Back Exam: no CVA tenderness, no vertebral tenderness Extremity: non-tender, normal inspection, no pedal edema, normal capillary refill 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 The patient appears to simply have a viral syndrome. She tested negative for strep and coronavirus here today. She is to keep her self well- hydrated and maintain a bland diet. 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 She can return to work when symptoms have abated. ER warnings are given. Keep routine follow-up with primary care doctor. anna benjamin [id number] - Results/Orders Results/Orders: Laboratory Tests 06/02/20 06/02/20 08:52 08:52 Urine Color Yellow Urine Appearance Clear Urine pH 5.5 Ur Specific [place] 1.020 Urine Protein Negative Urine Glucose (UA) Negative Urine Ketones Negative Urine Blood Negative Urine Nitrite Negative Urine Bilirubin Negative Urine Urobilinogen 0.2 Ur Leukocyte Esterase Negative Urine RBC 0-1 Urine WBC 0 Ur Epithelial Cells 3-5 Amorphous Sediment 1+ Urine Bacteria Rare Urine HCG, Qual Negative Group A Strep Rapid Negative Viral respiratory panel was negative. Departure - Departure Clinical Impression: Viral syndrome Disposition: Discharge to Home or Self Care Condition: Fair Departure Forms: ED Discharge - Pt. Copy, ED Discharge - Work Release, Patient Portal Self Enrollment Instructions: Viral Gastroenteritis Diet: bland diet Activity: increase activity as tolerated Prescriptions: Ondansetron Odt [Zofran ODT] 4 mg PO Q8HR PRN #5 tab PRN Reason: Nausea--Moderate Home Medications: Ambulatory Orders Ibuprofen [Motrin] 600 mg PO Q6HR #30 tab 05/02/20 Ondansetron Odt [Zofran ODT] 4 mg PO Q8HR PRN #5 tab 06/02/20 Additional Instructions: The patient is a 20-year-old female presented emergency room with a mild runny nose along with a couple of episodes of nausea and vomiting overnight. The patient appears to simply have a viral syndrome. She tested negative for strep and coronavirus here today. She is to keep her self well- hydrated and maintain a bland diet. 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 She can return to work when symptoms have abated. ER warnings are given. Keep routine follow-up with primary care doctor.
[2020-06-02 11:15] VITALS: TEMP 97
== END 2020-06-02 11:10 | disposition home or self-care (01) ==
LOC: ER 08:19
DX: B34.9 Viral infection, unspecified (principal); E03.9 Hypothyroidism, unspecified; Z20.828 Contact with and (suspected) exposure to other viral communicable diseases; Z87.891 Personal history of nicotine dependence